=== PATIENT | male | born 1950 | race Caucasian/White ===

== ENCOUNTER 2020-02-24 10:33 | Outpatient (CLI) | payer MEDICARE, SELFPAY ==
--- NOTE | 2020-02-24 10:40 | US_ITS ---
WS: [id number] ULTRASOUND RENAL TECHNIQUE: Ultrasound examination of both kidneys. CLINICAL INFORMATION: CHRONIC KIDNEY DZ/STAGE III/URINARY FREQUENCY COMPARISON: None. FINDINGS: RIGHT: Right kidney demonstrates severe hydronephrosis. Echogenicity: Normal. Hydronephrosis: Severe Perinephric fluid: None. Right kidney measures: 17.5 cm x 7.7 cm x 6.8 cm. LEFT: Left kidney demonstrates severe hydronephrosis. Echogenicity: Normal. Hydronephrosis: Severe Perinephric fluid: None. Left kidney measures: 19.8 cm x 10.4 cm x 9.9 cm. Normal visualized aorta. Post void bladder residual greater than 1000 cc. Prevoid bladder volume not accurately measured due to exceeding [id number]. Enlarged prostate measuring 4.3 x 4.0 CM. US/US renal BI with bladder IMPRESSION: 1. Severe bilateral hydronephrosis. This can be further evaluated with CT to a ssess for obstruction. 2. Post void bladder residual greater than 1000 cc. 3. Enlarged prostate. Recommend correlation PSA.
== END 2020-02-24 10:34 | disposition home or self-care (01) ==
LOC: RADWPI 10:39
PROVIDERS: Family Provider Family Medicine; PCP Family Medicine; Visit Provider Family Medicine
DX: N18.3 Chronic kidney disease, stage 3 (moderate) (principal); R35.0 Frequency of micturition; N13.30 Unspecified hydronephrosis; N40.0 Benign prostatic hyperplasia without lower urinary tract symptoms
CPT/HCPCS: 76770; 76857

== ENCOUNTER → 2020-02-28 12:08 | Outpatient (BNVA) | payer MEDICARE, SELFPAY | PROVIDERS: Family Provider Family Medicine; PCP Family Medicine; Visit Provider Urology | DX: N13.30 Unspecified hydronephrosis (principal) | CPT/HCPCS: 80053; 85025 ==

== ENCOUNTER → 2020-03-02 13:39 | Outpatient (BNVA) | payer MEDICARE, SELFPAY | PROVIDERS: Family Provider Family Medicine; PCP Family Medicine; Visit Provider Urology | DX: N13.30 Unspecified hydronephrosis (principal); R33.8 Other retention of urine; R33.9 Retention of urine, unspecified; N20.1 Calculus of ureter; N40.1 Benign prostatic hyperplasia with lower urinary tract symptoms; R79.89 Other specified abnormal findings of blood chemistry; N13.9 Obstructive and reflux uropathy, unspecified | CPT/HCPCS: 81001 ==

== ENCOUNTER → 2020-03-16 09:05 | Outpatient (BNVA) | payer MEDICARE, SELFPAY | PROVIDERS: Family Provider Family Medicine; PCP Family Medicine; Visit Provider Urology | DX: N13.30 Unspecified hydronephrosis (principal) | CPT/HCPCS: 80048 ==

== ENCOUNTER → 2020-04-11 18:20 | Outpatient (BNVA) | payer MEDICARE, SELFPAY | PROVIDERS: Family Provider Family Medicine; PCP Family Medicine; Visit Provider Nurse Practitioner Family | DX: N39.0 Urinary tract infection, site not specified (principal); Z68.25 Body mass index [BMI] 25.0-25.9, adult; Z71.89 Other specified counseling | CPT/HCPCS: 80053; 81000; 87077; 87086; 87186 ==

== ENCOUNTER → 2020-05-19 11:34 | Outpatient (BNVA) | payer MEDICARE, SELFPAY | PROVIDERS: Family Provider Family Medicine; PCP Family Medicine; Visit Provider Urology | DX: N40.1 Benign prostatic hyperplasia with lower urinary tract symptoms (principal); R79.89 Other specified abnormal findings of blood chemistry; R33.9 Retention of urine, unspecified; N13.30 Unspecified hydronephrosis; Z87.440 Personal history of urinary (tract) infections | CPT/HCPCS: 80048 ==

== ENCOUNTER 2020-08-21 04:51 | Emergency (ER) | payer MEDICARE, SELFPAY ==
[2020-08-21] VITALS (9 sets, daily range): BP systolic 129–177; BP diastolic 73–98; PULSE 59–67; RESP 16–18; TEMP 36.4–37; O2SAT 59–99; BMI 25.1
--- NOTE | 2020-08-21 05:21 | XR_ITS ---
WS: [id number] Portable AP upright chest, 08/21/2020 Clinical Data: htn Comparison: None. Findings: No nodules, masses or effusions are seen. The heart is enlarged. The pulmonary vascularity is not increased. No pneumonia or pneumothorax is seen. 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 There is a hiatal hernia behind the heart. Monitor leads are on the chest wall. XR/XR chest 1V portable [id number] Impression: Cardiomegaly and atherosclerosis.
[2020-08-21] MEDS: sodium chloride 0.9% 500 ML 999 ML IV (05:25)
--- NOTE | 2020-08-21 05:58 | PC.NURSE ---
during IV insertion, pt b/p normo tensive @ 134/78. Per Janes hold on hydralazine
--- NOTE | 2020-08-21 06:13 | W.ED.GENADLT ---
HPI - General Adult General: Chief complaint: General Medical Stated complaint: bp issues Time Seen by Provider: 08/21/20 05:11 History of Present Illness: HPI narrative: 70 yo is emergency room after waking up diaphoretic generally not feeling well. He worked outside all day yesterday. He is not currently having any chest pain. Is initially seen by Saji Marrero and handed off at change of shift to myself. Onset (ago): hour(s) Relieving factors: none Exacerbating factors: none Associated symptoms: Reports malaise and weakness; Deny chest pain, confusion, cough, diaphoresis, decreased appetite, dyspnea, fevers/chills, headache(s), nausea, rash, palpitations, seizures, short of breath, syncope or vomiting Treatments prior to arrival: none Review of Systems Const: Reports: malaise; Denies: diaphoresis ENMT: Denies: throat pain, ear or mastoid pain, nasal discharge or nasal congestion Card: Denies: chest pain, palpitations or syncope Resp: Denies: dyspnea GI: Denies: nausea or vomiting : Denies: flank pain, dysuria, urinary frequency or urinary urgency Skin/Breast: Denies: rash Neuro: Denies: headache(s) or confusion PFSH ED PFSH: Medical History Bilateral hydronephrosis BPH NOS w ur obs/LUTS Elevated serum creatinine Urinary retention Surgical History Hx of inguinal hernia repair Hx of tonsillectomy Family History Mother , at age 82 Stroke Father , at age 81 CAD (coronary artery disease) Social History Smoking and tobacco status: never smoked Alcohol intake: current Alcohol intake frequency: holidays/special occasions only Marital status: Current occupational status: retired Current occupation: phan History of recent travel: No Physical Exam Const: COMMON NORMALS: no acute distress GENERAL APPEARANCE: cooperative and comfortable ORIENTATION/CONSCIOUSNESS: Yes awake, Yes oriented to person, Yes oriented to place and Yes oriented to time HENMT: COMMON NORMALS: normocephalic, atraumatic, hearing grossly normal bilaterally, external ears normal, EAC's normal, TM's normal bilaterally, Normal nasal mucous membranes and turbinates present, moist oral mucous membranes and oropharynx normal HEAD & SCALP: normocephalic and atraumatic NOSE: Normal nasal mucous membranes and turbinates present EXTERNAL EAR: Yes external ears normal EXTERNAL AUDITORY CANAL: EAC's normal TYMPANIC MEMBRANE: TM's normal bilaterally Eye: COMMON NORMALS: Equal, round and reactive pupils present, EOMs intact bilaterally, conjunctivae normal and no scleral icterus CONJUNCTIVA: Yes conjunctivae normal PUPIL: Yes Equal, round and reactive pupils present Neck/C-Spine: COMMON NORMALS: full ROM, no lymphadenopathy, supple and no JVD Lymph: LYMPHATIC: no lymphadenopathy noted and no lymphedema noted Resp: COMMON NORMALS: normal respiratory effort, No retractions, No use of accessory muscles and clear to auscultation bilaterally AUSCULTATION: clear to auscultation bilaterally Cardio: COMMON NORMALS: no JVD, regular rate, regular rhythm and No murmurs present (Cardio) RATE: regular rate RHYTHM: regular rhythm GI: COMMON NORMALS: Soft to palpation and No hepatosplenomegaly present AUSCULTATION: Yes normoactive bowel sounds PALPATION: Yes Soft to palpation, No Tenderness to palpation present (GI), No Guarding due to palpation present (GI) and Yes No hepatosplenomegaly present Extremity: COMMON NORMALS: normal to inspection, capillary refill normal, no clubbing, cyanosis or edema, no calf tenderness and no pedal edema Neuro: SENSORIUM/ORIENTATION: Yes oriented to person, Yes oriented to place and Yes oriented to time Skin: COMMON NORMALS: no rashes or lesions noted GENERAL SKIN EXAM: no rashes or lesions noted Course Vital Signs: Vital signs: Vital Signs Temperature 97.8 F 08/21/20 09:22 Pulse Rate 65 08/21/20 09:22 Respiratory Rate 16 08/21/20 09:22 Blood Pressure 151/78 08/21/20 09:22 Pulse Oximetry 96 08/21/20 09:22 MDM - General Adult MDM Narrative: Medical decision making narrative: Patient has a cystitis also suspect the patient may have COVID-19. Testing is been done however he is minimally symptomatic I think he can be discharged home. He does have some chronic hyperkalemia associated with his chronic renal insufficiency. We will have him follow-up next week with his primary care doctor return if has any further problems. Has been elevated in the past of the same level on his potassium no treatment given at this time. Lab Data: Labs: Lab Results 08/21/20 08/21/20 08/21/20 Range/Units 05:43 05:43 05:43 WBC 10.9 H (4.0-10.0) 10^3/ uL RBC 6.28 H (4.1-5.3) 10^6/u L Hgb 18.1 H (11.7-16.6) g/dL Hct 55.3 H (42.0-52.0) % MCV 88.1 (80-94) fL MCH 28.8 (28.0-34.0) pg MCHC 32.7 (30.0-36.0) g/dL RDW 14.3 (12.1-15.1) % Plt Count 258 (130-400) 10^3/c mm MPV 11.0 H (7.4-10.4) fL Neut % (Auto) 76.9 % Lymph % (Auto) 6.3 % Bladen % (Auto) 13.6 % Eos % (Auto) 2.3 % Baso % (Auto) 0.5 % Neut # (Auto) 8.39 H (1.8-7.7) 10^3/u L Lymph # (Auto) 0.7 L (0.8-4.8) 10^3/u L Bladen # (Auto) 1.5 H (0.2-0.9) 10^3/u L Eos # (Auto) 0.3 (0.0-0.8) 10^3/u L Baso # (Auto) 0.1 (0.0-0.1) 10^3/u L Nucleated RBC % (a uto) 0 % Nucleated RBCs # 0.0 /100WBC Sodium 134 L (136-145) mmol/L Potassium 5.8 H (3.5-5.1) mmol/L Chloride 103 (98-107) mmol/L Carbon Dioxide 21 L (22-29) mmol/L Anion Gap 15.8 (5-19) BUN 28 H (8-23) mg/dL Creatinine 2.9 H (0.7-1.2) mg/dL GFR Calculation 21.6 L (90-130) mL/min Glucose 106 (65-115) mg/dL Calculated Osmolal ity 284 L (285-295) mOsm/k g Calcium 9.9 (8.5-10.5) mg/dL Total Bilirubin 1.1 (0.15-1.2) mg/dL AST 16 (0-40) U/L ALT 22 (0-41) U/L Alkaline Phosphata se 81 (40-130) IU/L Creatine Kinase 75 (39-308) U/L Troponin T Baselin e 30 H (0-15) ng/L Troponin T 120 Min yuhaaviatam (0-15) ng/L Delta Troponin T (0-10) ABS# Total Protein 7.7 (6.6-8.7) g/dL Albumin 4.2 (3.5-5.2) g/dL Globulin 3.5 (1.3-4.6) g/dL Urine Color (Yellow) Urine Appearance (CLEAR) Urine pH (5-7) Ur Specific Gravit y (1.005-1.030) Urine Protein (Negative) Urine Glucose (UA) (Normal) Urine Ketones (Negative) Urine Blood (Negative) Urine Nitrate (Negative) Urine Bilirubin (Negative) Urine Urobilinogen (Negative) mg/dL Ur Leukocyte Paola ase (Negative) Urine RBC (0-2) /hpf Urine WBC (0-5) /hpf Ur Squamous Epith Cells (0-5) /hpf Amorphous Sediment Urine Bacteria (NONE) /hpf SARS-CoV-2 RNA (RT -PCR) (NOT DETECTED) 08/21/20 08/21/20 08/21/20 Range/Units 06:00 07:38 09:15 WBC (4.0-10.0) 10^3/ uL RBC (4.1-5.3) 10^6/u L Hgb (11.7-16.6) g/dL Hct (42.0-52.0) % MCV (80-94) fL MCH (28.0-34.0) pg MCHC (30.0-36.0) g/dL RDW (12.1-15.1) % Plt Count (130-400) 10^3/c mm MPV (7.4-10.4) fL Neut % (Auto) % Lymph % (Auto) % Bladen % (Auto) % Eos % (Auto) % Baso % (Auto) % Neut # (Auto) (1.8-7.7) 10^3/u L Lymph # (Auto) (0.8-4.8) 10^3/u L Bladen # (Auto) (0.2-0.9) 10^3/u L Eos # (Auto) (0.0-0.8) 10^3/u L Baso # (Auto) (0.0-0.1) 10^3/u L Nucleated RBC % (a uto) % Nucleated RBCs # /100WBC Sodium (136-145) mmol/L Potassium (3.5-5.1) mmol/L Chloride (98-107) mmol/L Carbon Dioxide (22-29) mmol/L Anion Gap (5-19) BUN (8-23) mg/dL Creatinine (0.7-1.2) mg/dL GFR Calculation (90-130) mL/min Glucose (65-115) mg/dL Calculated Osmolal ity (285-295) mOsm/k g Calcium (8.5-10.5) mg/dL Total Bilirubin (0.15-1.2) mg/dL AST (0-40) U/L ALT (0-41) U/L Alkaline Phosphata se (40-130) IU/L Creatine Kinase (39-308) U/L Troponin T Baselin e (0-15) ng/L Troponin T 120 Min yuhaaviatam 27.76 H (0-15) ng/L Delta Troponin T -2.24 L (0-10) ABS# Total Protein (6.6-8.7) g/dL Albumin (3.5-5.2) g/dL Globulin (1.3-4.6) g/dL Urine Color Yellow (Yellow) Urine Appearance Cloudy (CLEAR) Urine pH 5 (5-7) Ur Specific Gravit y 1.010 (1.005-1.030) Urine Protein 1+ H (Negative) Urine Glucose (UA) Norm (Normal) Urine Ketones Negative (Negative) Urine Blood 3+ H (Negative) Urine Nitrate Negative (Negative) Urine Bilirubin Neg (Negative) Urine Urobilinogen Norm (Negative) mg/dL Ur Leukocyte Po[place] ase 2+ H (Negative) Urine RBC 5-10 H (0-2) /hpf Urine WBC Too numerous to c nt H (0-5) /hpf Ur Squamous Epith Cells 0-4 H (0-5) /hpf Amorphous Sediment Not Reportable Urine Bacteria 1+ H (NONE) /hpf SARS-CoV-2 RNA (RT -PCR) Not detected (NOT DETECTED) Discharge Plan Discharge Patient Disposition: Home Clinical Impression: Suspected 2019-nCoV infection, Cystitis Condition: Stable Prescriptions: New ciprofloxacin HCl 500 mg tablet 500 mg PO BID 7 Days Qty: 14 RF: 0 No Action propranolol 20 mg tablet 20 mg PO BID RF: 0 tamsulosin 0.4 mg capsule 0.4 mg PO BID Qty: 60 RF: 12 Flonase Allergy Relief 50 mcg/actuation [place],Suspension See Rx Instructions .ROUTE .COMPLEX RF: 0 Equate Allergy Relief 1 tab PO DAILY RF: 0 methenamine hippurate 1 gram tablet 1 g PO BID PRN (Reason: recurrent uti) RF: 0 Discharge Orders: Discharge Order (Routine); Ordered 08/21/20 Ordered By: Davide Peña Referrals: Ian Peraza MD [Primary Care Provider] - Discharge Diet: Usual diet Discharge Activity: Limit activity as instructed Activity Restrictions/Additional Instructions: Return to the emergency room if you have any significant difficulty in breathing. Discharge Date/Time: 08/21/20 09:33 Coding Level of Care Code ED Border Machine Operator for Christie Fwd Exam Comprehensive
[2020-08-21 06:24] LABS: Add Urine Microscopic? YES; Bilirubin Urine Neg (Negative); Blood Urine 3+ (Negative); Glucose Urine UA Norm (Normal); Ketones Urine Negative (Negative); Leukocyte Esterase Urine 2+ (Negative); Nitrate Urine Negative (Negative); Protein Urine 1+ (Negative); Urine Appearance Cloudy (CLEAR); Urine Color Yellow (Yellow); Urobilinogen Urine Norm (Negative); pH Urine 5 (5-7)
--- NOTE | 2020-08-21 06:27 | PC.NURSE ---
during pt rounds, pt requesting nasal spray for congestion and water. Dr cedeno request for water, does not have nasal spray for decongestion
[2020-08-21 06:28] LABS: Add Urine Culture? Yes; Bacteria Urine 1+ /hpf; Squamous Epithelial Cell Urine 0-4 /hpf (0-5); WBC Urine TOO NUMEROUS TO CNT /hpf (0-5)
[2020-08-21 06:31] LABS: Alanine Aminotransferase 22 U/L (0-41); Albumin Level 4.2 g/dL (3.5-5.2); Alkaline Phosphatase 81 IU/L (40-130); Anion Gap 15.8 (5-19); Aspartate Amino Transferase 16 U/L (0-40); Blood Urea Nitrogen 28 mg/dL (8-23); Calcium 9.9 mg/dL (8.5-10.5); Carbon Dioxide 21 mmol/L (22-29); Chloride 103 mmol/L (98-107); Creatine Phosphokinase 75 U/L (39-308); Globulin 3.5 g/dL (1.3-4.6); Glomerular Filtration Rate 21.6 mL/min (90-130); Glucose 106 mg/dL (65-115); Osmolality Calculated 284 mOsm/kg (285-295); Potassium 5.8 mmol/L (3.5-5.1); Sodium 134 mmol/L (136-145); Total Bilirubin 1.1 mg/dL (0.15-1.2); Total Protein 7.7 g/dL (6.6-8.7); Troponin(5th) Baseline 30 ng/L (0-15)
[2020-08-21 06:34] LABS: Basophils # 0.1 10^3/uL (0.0-0.1); Basophils % 0.5 %; Eosinophils # 0.3 10^3/uL (0.0-0.8); Eosinophils % 2.3 %; Hematocrit 55.3 % (42.0-52.0); Hemoglobin 18.1 g/dL (11.7-16.6); Lymphocytes # 0.7 10^3/uL (0.8-4.8); Lymphocytes % 6.3 %; Mean Corpuscular HGB Conc 32.7 g/dL (30.0-36.0); Mean Corpuscular Hemoglobin 28.8 pg (28.0-34.0); Mean Corpuscular Volume 88.1 fL (80-94); Monocytes # 1.5 10^3/uL (0.2-0.9); Monocytes % 13.6 %; Neutrophils # 8.39 10^3/uL (1.8-7.7); Neutrophils % 76.9 %; Nucleated Red Blood Cells % 0 %; Platelet Count 258 10^3/cmm (130-400); Red Blood Count 6.28 10^6/uL (4.1-5.3); Red Cell Distribution Width 14.3 % (12.1-15.1); White Blood Count 10.9 10^3/uL (4.0-10.0)
--- NOTE | 2020-08-21 06:55 | PC.NURSE ---
Received report assumed care. No changes noted from report. C/O of gas pains . Asked if he wanted to go to the bathroom, he denied he wanted to go indicating he did not want to go to the bathroom.
--- NOTE | 2020-08-21 07:21 | ECG_ITS ---
[facility] Test Date: 2020-08-21 Pat Name: Gregorio Garza Department: Room: Gender: Male Clinical Laboratory Technician: : 1950 Requested By: Saji Nava Order Number: [id number] Cheung MD: Todd Fulton M.D. Measurements Intervals [place] Rate: 61 P: 48 ID: [id number] QRS: 47 QRSD: 102 T: 64 QT: 397 QTc: 400 Interpretive Statements SINUS RHYTHM No previous ECG available for comparison Electronically Signed On 08-21-2020 16:38:03 CDT by Todd Fulton M.D. [email or web address]
[2020-08-21 08:07] LABS: Troponin 5 2HR 27.76 ng/L (0-15)
[2020-08-21 08:10] LABS: Troponin 5 2HR Delta -2.24 ABS# (0-10)
[2020-08-21] MEDS: cefTRIAXone 1,000 MG in sodium chloride 0.9% (plus) 50 ML 100 MG IV (08:27)
[2020-08-22 23:33] LABS: Quest SARS-CoV-2 RNA NOT DETECTED (NOT DETECTED)
--- NOTE | 2020-08-23 08:16 | PC.NURSE ---
Pt called and notified of negative COVID result.
== END 2020-08-21 09:33 | disposition home or self-care (01) ==
PROVIDERS: Emergency Medicine; Emergency Provider Family Medicine; PCP Family Medicine
DX: N30.90 Cystitis, unspecified without hematuria (principal)
CPT/HCPCS: 12345; 36415; 71045; 80053; 81001; 82550; 84484; 85025; 87040; 87077; 87086; 87186; 87635; 93005; 96365; 99284; J0696; J7040

== ENCOUNTER 2021-09-22 09:29 | Outpatient (CLI) | payer MEDICARE, SELFPAY ==
--- NOTE | 2021-09-22 09:30 | US_ITS ---
WS: [id number] RENAL ULTRASOUND HISTORY: BILATERAL HYDRONEPHROSIS COMPARISON: 02/24/2020 TECHNIQUE: 2-D and color Doppler imaging of the kidney submitted. Right kidney: 12.8 cm x 5.3 cm x 5.2 cm. Normal size kidney. Cortical cyst measures 0.7 x 1.0 x 1.2 cm upper pole RIGHT kidney. No solid mass or obstruction. Left kidney: 9.0 cm x 4.1 cm x 3.1 cm. Moderate atrophy with severe cortical thinning and increased echogenicity. No hydronephrosis or solid mass. Aorta: Normal. Urinary Bladder: Normally distended urinary bladder. There is mild wall thickening of the bladder. Th ere is an enlarged lobulated mass extending from the region of the prostate gland into the lumen of t he bladder. Prostate measures 3.0 x 4.2 x 5.5 cm. US/US renal BI* [id number] IMPRESSION: 1. No hydronephrosis. 2. Moderate atrophy with severe cortical thinning and increased echogenicity L EFT kidney. This is new since the prior study of 02/24/2020 and which severe hyd ronephrosis was described. 3. Markedly enlarged prostate gland encroaching into the urinary bladder.
[2021-09-22 10:47] LABS: Anion Gap 14.5 (5-19); Blood Urea Nitrogen 23 mg/dL (8-23); Carbon Dioxide 22 mmol/L (22-29); Chloride 105 mmol/L (98-107); Glucose 78 mg/dL (65-115); Osmolality Calculated 287 mOsm/kg (285-295); Potassium 4.5 mmol/L (3.5-5.1); Sodium 137 mmol/L (136-145)
== END 2021-09-22 09:30 | disposition home or self-care (01) ==
PROVIDERS: PCP Family Medicine; Visit Provider Urology
DX: N13.30 Unspecified hydronephrosis (principal); N26.1 Atrophy of kidney (terminal); N40.0 Benign prostatic hyperplasia without lower urinary tract symptoms
CPT/HCPCS: 36415; 76770; 80048

== ENCOUNTER → 2022-06-07 13:17 | Outpatient (BNVA) | payer MEDICARE, SELFPAY | PROVIDERS: PCP Family Medicine; Visit Provider Family Medicine | DX: R50.9 Fever, unspecified (principal); R53.83 Other fatigue | CPT/HCPCS: 80053; 83880; 84443; 85025; 86141 ==

== ENCOUNTER 2022-06-20 07:27 | Outpatient (CLI) | payer MEDICARE, SELFPAY ==
--- NOTE | 2022-06-20 07:41 | US_ITS ---
WS: [id number] RENAL ULTRASOUND HISTORY: CHRONIC KIDNEY DZ STAGE III/URINARY FREQUENCY COMPARISON: 09/22/2021 TECHNIQUE: 2-D and color Doppler imaging of the kidney submitted. Right kidney: 12.0 cm x 5.6 cm x 4.9 cm. Kidney is normal size. There is cortical thinning involving the lower pole. No hydronephrosis. Exophy tic cyst from the inferior pole measures 1.2 x 1.4 x 1.4 cm. Left kidney: 7.9 cm x 4.7 cm x 3.2 cm. Atrophy and increased echogenicity involving the LEFT kidney. Similar finding as on the prior study. No hydronephrosis. Aorta: Mild atherosclerotic plaque. Urinary Bladder: Markedly distended urinary bladder. Low level echoes within the bladder. There is a lobulated soft tissue mass encroaches into the base of the urinary bladder. Consistent with prostate. This mass measures 4.3 x 3.8 x 4.4 cm. Similar to the prior examination. US/US renal BI* [id number] IMPRESSION: 1. Severe atrophy LEFT kidney, similar to the prior study. 2. Normal size RIGHT kidney with mild atrophy involving the lower pole cortex. 3. Simple cyst lower pole RIGHT kidney with a maximum diameter 1.4 cm. 4. Markedly distended urinary bladder.
== END 2022-06-20 07:28 | disposition home or self-care (01) ==
LOC: RAD 07:28
PROVIDERS: PCP Family Medicine; Visit Provider Family Medicine
DX: N18.30 Chronic kidney disease, stage 3 unspecified (principal); N26.1 Atrophy of kidney (terminal); N28.1 Cyst of kidney, acquired
CPT/HCPCS: 76770

== ENCOUNTER → 2022-06-22 14:58 | Outpatient (BNVA) | payer MEDICARE, SELFPAY | PROVIDERS: PCP Family Medicine; Visit Provider Family Medicine | DX: N17.9 Acute kidney failure, unspecified (principal); N18.9 Chronic kidney disease, unspecified | CPT/HCPCS: 80048 ==

== ENCOUNTER → 2022-09-22 08:47 | Outpatient (BNVA) | payer MEDICARE, SELFPAY | PROVIDERS: PCP Family Medicine; Visit Provider Urology | DX: N40.1 Benign prostatic hyperplasia with lower urinary tract symptoms (principal); R33.9 Retention of urine, unspecified; N31.8 Other neuromuscular dysfunction of bladder; N18.9 Chronic kidney disease, unspecified | CPT/HCPCS: 81003; 99213 ==

== ENCOUNTER → 2022-10-03 12:18 | Outpatient (BNVA) | payer MEDICARE, SELFPAY | PROVIDERS: PCP Family Medicine; Visit Provider Family Medicine | DX: N18.4 Chronic kidney disease, stage 4 (severe) (principal) | CPT/HCPCS: 80069; 82043; 82310; 83970; 85025 ==

== ENCOUNTER 2022-12-06 07:35 | Outpatient (CLI) | payer MEDICARE, SELFPAY ==
--- NOTE | 2022-12-06 07:45 | USCV_ITS ---
Greg Gregorio Age: 72 Gender: M : 1950 Exam Date: 12/06/2022 07:54 Ordering Phys: Ian Peraza MD Technologist: CT Exam Location: [facility]_ Indication: hypertension Aortic Velocity @ SMA (cm/s) 82.6 RIGHT KIDNEY LEFT KIDNEY Velocity (cm/s) Velocity (cm/s) Sys/Moreno Sys/Moreno Resistive Index Resistive Index 124.8 / 28.3 0.78 Proximal Renal Artery / 199.3 / 41.1 0.79 Mid Renal Artery / 95.7 / 17.2 0.82 Distal Renal Artery / 94.9 / 17.9 0.81 Hilar / 66.4 / 25.9 0.61 Upper Pole / 75.4 / 21.4 0.72 Mid Pole / 34.7 / 13.3 0.62 Lower Pole / 2.40 Renal Aortic Ratio Accleration Index (cm/sec2) 1018.0 Hilar 0 432.00 Upper Pole 367.00 Mid Pole 434.00 Lower Pole 115.9 Kidney Length (mm) 82.0 FINDINGS atrophic left kd, thin cortex inferiorly on rt, exam without evidence of HANNAH Right kidney measured 11.6 cm in length Left kidney measured 8.2 cm in length Renal aortic ratio of 2.4 Slightly elevated resistive indicis CONCLUSIONS 1. Normal kidney dimensions on the right side. 2. Contracted kidney on the left side 3. Slightly elevated resistive indicis, suggesting medical renal disease No significant renal artery stenosis on the right side, based on the above findings Dr Meaghan Emerson MD [facility] (Electronically Signed) Final Date: 06 December 2022 22:42 S
== END 2022-12-06 07:36 | disposition home or self-care (01) ==
PROVIDERS: PCP Family Medicine; Visit Provider Family Medicine
DX: I10 Essential (primary) hypertension (principal)
CPT/HCPCS: 93975

== ENCOUNTER → 2023-01-17 08:40 | Outpatient (BNVA) | payer MEDICARE, SELFPAY | PROVIDERS: PCP Family Medicine; Visit Provider Family Medicine | DX: I10 Essential (primary) hypertension (principal); N18.9 Chronic kidney disease, unspecified | CPT/HCPCS: 80048 ==

== ENCOUNTER → 2023-04-18 09:07 | Outpatient (BNVA) | payer MEDICARE, SELFPAY | PROVIDERS: PCP Family Medicine; Visit Provider Family Medicine | DX: N18.9 Chronic kidney disease, unspecified (principal); R40.0 Somnolence; N13.30 Unspecified hydronephrosis; I10 Essential (primary) hypertension | CPT/HCPCS: 80048 ==

== ENCOUNTER → 2023-04-27 09:50 | Outpatient (BNVA) | payer MEDICARE, SELFPAY | PROVIDERS: PCP Family Medicine; Visit Provider Family Medicine | DX: N18.9 Chronic kidney disease, unspecified (principal) | CPT/HCPCS: 80048; 82043; 82310; 83970; 85025 ==

== ENCOUNTER → 2023-09-04 09:11 | Outpatient (BNVA) | payer MEDICARE, SELFPAY | PROVIDERS: PCP Family Medicine; Visit Provider Family Medicine | DX: D63.1 Anemia in chronic kidney disease (principal); N18.4 Chronic kidney disease, stage 4 (severe) | CPT/HCPCS: 80069; 82306; 82310; 83970; 85025 ==

== ENCOUNTER → 2024-01-30 12:00 | Outpatient (BNVA) | payer MEDICARE, SELFPAY | PROVIDERS: PCP Family Medicine; Visit Provider Family Medicine | DX: Z98.890 Other specified postprocedural states (principal); Z87.2 Personal history of diseases of the skin and subcutaneous tissue | CPT/HCPCS: 88304 ==

== ENCOUNTER → 2024-02-21 10:52 | Outpatient (BNVA) | payer MEDICARE, SELFPAY | PROVIDERS: PCP Family Medicine; Visit Provider Family Medicine | DX: N18.9 Chronic kidney disease, unspecified (principal) | CPT/HCPCS: 80069; 85025 ==

== ENCOUNTER → 2024-04-23 10:07 | Outpatient (BNVA) | payer MEDICARE, SELFPAY | PROVIDERS: PCP Family Medicine; Visit Provider Family Medicine | DX: I12.9 Hypertensive chronic kidney disease with stage 1 through stage 4 chronic kidney disease, or unspecified chronic kidney disease (principal); N18.9 Chronic kidney disease, unspecified; N31.8 Other neuromuscular dysfunction of bladder; Z87.440 Personal history of urinary (tract) infections; R33.9 Retention of urine, unspecified | CPT/HCPCS: 80069; 82306; 82542; 82570; 84156; 85025 ==

== ENCOUNTER → 2024-10-11 08:42 | Outpatient (BNVA) | payer MEDICARE, SELFPAY | PROVIDERS: PCP Family Medicine; Visit Provider Family Medicine | DX: N18.9 Chronic kidney disease, unspecified (principal); I12.9 Hypertensive chronic kidney disease with stage 1 through stage 4 chronic kidney disease, or unspecified chronic kidney disease; E55.9 Vitamin D deficiency, unspecified | CPT/HCPCS: 80053; 82306; 82542; 82570; 84156; 85025 ==

== ENCOUNTER → 2025-02-05 14:44 | Outpatient (BNVA) | payer MEDICARE, SELFPAY | PROVIDERS: PCP Family Medicine; Visit Provider Family Medicine | DX: N18.9 Chronic kidney disease, unspecified (principal); Z87.440 Personal history of urinary (tract) infections | CPT/HCPCS: 80069; 82570; 84156; 85025 ==

== ENCOUNTER → 2025-05-20 13:28 | Outpatient (BNVA) | payer MEDICARE, SELFPAY | PROVIDERS: PCP Family Medicine; Visit Provider Family Medicine | DX: R79.89 Other specified abnormal findings of blood chemistry (principal); R33.9 Retention of urine, unspecified; N18.9 Chronic kidney disease, unspecified | CPT/HCPCS: 80069; 82306; 82310; 82570; 83970; 84156 ==

== ENCOUNTER → 2025-09-24 14:06 | Outpatient (BNVA) | payer MEDICARE, SELFPAY | PROVIDERS: PCP Family Medicine; Visit Provider Family Medicine | DX: N18.9 Chronic kidney disease, unspecified (principal); I10 Essential (primary) hypertension; R79.89 Other specified abnormal findings of blood chemistry | CPT/HCPCS: 80053; 80061; 83036 ==